=== PATIENT | male | born 1995 | race Caucasian/White ===

== ENCOUNTER 2018-04-01 08:14 | Emergency (ER) | payer MEDICAID ==
--- NOTE | 2018-04-01 08:49 | EDM.PDOC ---
ED HPI GENERAL MEDICAL PROBLEM - General Chief Complaint: Back Pain or Injury Stated Complaint: R SIDE BACK AND LEG PAIN Time Seen by Provider: 04/01/18 08:39 Source of Information: Reports: Patient History Limitations: Reports: No Limitations - History of Present Illness INITIAL COMMENTS - FREE TEXT/NARRATIVE: 22-year-old male presents to the ED with acute onset of low back pain starting yesterday and worsening overnight. Pain is now radiating down the right buttock and posterior lateral thigh to his toes. He states his toes are numb and tingly. She did work out yesterday including squats. He states it wasn't too bad while doing very squats. Did not recognize that he had injured himself. He has had mild low back pain the past and has seen a chiropractor but never to this severity. Pain is constant deep and aching and worsened by movement of the right lower extremity and weightbearing. Onset: Gradual Onset Date: 03/31/18 Duration: Hour(s):, Getting Worse Location: Reports: Back, Radiates to Quality: Reports: Ache, Burning, Throbbing Severity: Moderate (8-9 out of 10.) Improves with: Reports: Rest Worsens with: Reports: Movement (Standing and weightbearing make it worse.) Context: Reports: Other (Possibly injured by doing squats in the gym.). 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 Lower Back Pain Score (Numeric/FACES): 8 Right Leg Pain Score (Numeric/FACES): 10 - Related Data Allergies Allergy/AdvReac Type Severity Reaction Status Date / Time No Known Allergies Allergy Verified 04/01/18 08:25 Home Meds: Home Meds Diclofenac Sodium [Voltaren] 50 mg PO TID #30 tab.ec 04/01/18 [Rx] Polyethylene Glycol 3350 [MiraLAX] 17 gm PO ONETIME #14 packet 04/01/18 [Rx] oxyCODONE HCl/Acetaminophen [Percocet 10-325 mg Tablet] 1 - 2 each PO Q4H PRN # 30 tablet 04/01/18 [Rx] predniSONE [Deltasone] 20 mg PO ASDIRECTED #18 tablet 04/01/18 [Rx] Past Medical History HEENT History: Reports: Impaired Vision Other HEENT History: corretive lenses Musculoskeletal History: Reports: Back Pain, Chronic (Is rehabbing his back post football. Yesterday was his first day of lifting heavier even with a weight belt in place. Was squatting around 275 pounds.) - Past Surgical History Musculoskeletal Surgical History: Reports: Other (See Below) Other Musculoskeletal Surgeries/Procedures:: two ankle surgeries Social & Family History - Tobacco Use Smoking Status *Q: Never Smoker Second Hand Smoke Exposure: No - Caffeine Use Caffeine Use: Reports: None - Recreational Drug Use Recreational Drug Use: No - Living Situation & Occupation Living situation: Reports: Alone Occupation: Student ED ROS GENERAL - Review of Systems Review Of Systems: See Below Constitutional: Reports: No Symptoms HEENT: Reports: No Symptoms Respiratory: Reports: No Symptoms Cardiovascular: Reports: No Symptoms Endocrine: Reports: No Symptoms GI/Abdominal: Reports: No Symptoms : Reports: No Symptoms Musculoskeletal: Reports: Back Pain Skin: Reports: No Symptoms Neurological: Reports: Paresthesia (Feels paresthesias or numbness and tingling down into his right foot and toes.) Psychiatric: Reports: No Symptoms Hematologic/Lymphatic: Reports: No Symptoms Immunologic: Reports: No Symptoms ED EXAM,LOWER BACK PAIN/INJURY - Physical Exam Exam: See Below Exam Limited By: No Limitations General Appearance: Alert, WD/WN, Mild Distress Eye Exam: Bilateral Eye: Normal Inspection Throat/Mouth: Normal Inspection, Normal Lips, Normal Oropharynx Head: Atraumatic, Normocephalic Extremities: Normal Inspection, No Pedal Edema, Other (Patient is markedly tender throughout the right sacroiliac joint as well as a bit of the left sacroiliac joint. He has some pain in his anterior quadriceps and) Neurological: Alert, Normal Mood/Affect, Normal Dorsiflexion, CN II-XII Intact, Normal Reflexes, Oriented x 3, Straight Leg Raise (R) (Straight leg raise was positive at 50 on the right side.), Other (Dorsiflexion of both great toes is equal.). No: Straight Leg Raise (L) DTR - Lower Extremities: 2+: Ankle (R), Ankle (L), 3+: Knee (R), Knee (L) Psychiatric: Normal Affect, Normal Mood Skin Exam: Warm, Dry, Intact, Normal Color, No Rash Course - Vital Signs Last Recorded V/S: Last Vital Signs Temp 36.2 C 04/01/18 08:22 Pulse 51 L 04/01/18 08:22 Resp 20 04/01/18 08:22 BP 131/64 04/01/18 08:22 Pulse Ox 100 04/01/18 08:22 - Orders/Labs/Meds Meds: Medications Discontinued Medications Generic Name Dose Route Start Last Admin Trade Name Delfin PRN Reason Stop Dose Admin Hydromorphone HCl 2 mg 04/01/18 08:53 Dilaudid IVPUSH 04/01/18 08:54 ONETIME ONE Hydromorphone HCl 2 mg 04/01/18 08:55 Dilaudid IM 04/01/18 08:56 ONETIME ONE Promethazine HCl 25 mg 04/01/18 08:53 Phenergan IM 04/01/18 08:54 ONETIME ONE - Radiology Interpretation Free Text/Narrative:: 22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 He presents to the ED with acute onset of severe low back pain rating down his posterior lateral right thigh to his foot. Patient has had back pain off and on for several months. He's been nursing himself back to better health. Yesterday he was squatting in the gym heavier than what he has been in the past. He did not notice any acute pain while squatting. However after squatting he developed increased low back pain on the right side radiating down the posterior lateral aspect of his right thigh down to his right foot. He is aware of some paresthesias and numbness and tingling in his right toes. Examination shows pain to palpation in his low back from L2-L5 on the right side worse at L4-L5 facet joints. There is marked pain on palpation of both sacroiliac joints worse on the right as compared to the left. Straight leg raising is mildly positive at 50 on the right side. Cannot rule out nerve root entrapment for sure. However a lot of pain appears to be referred from the low back. Plan he will be given an injection of Dilaudid 2 mg IM here with Phenergan 25 mg. Of note his weight is 312 pounds. He'll be discharged on prednisone 20 mg with breakfast and supper for 6 days then once in the morning for another 6 days. Voltaren 50 mg 3 times daily for 10 days. Exit 10/325 mg tabs one or 2 every 4-6 hours needed for pain relief. MiraLAX powder 17 g daily to prevent constipation. He's to follow-up with his personal care physician in 7-10 days time Departure - Departure Time of Disposition: 09:00 Disposition: Home, Self-Care 01 Condition: Fair Clinical Impression: Lumbar back sprain Qualifiers: Encounter type: initial encounter Qualified Code(s): S33.5XXA - Sprain of ligaments of lumbar spine, initial encounter - Discharge Information *PRESCRIPTION DRUG MONITORING PROGRAM REVIEWED*: Not Applicable *COPY OF PRESCRIPTION DRUG MONITORING REPORT IN PATIENT CRISTINE: Not Applicable Prescriptions: Diclofenac Sodium [Voltaren] 50 mg PO TID #30 tab.ec oxyCODONE HCl/Acetaminophen [Percocet 10-325 mg Tablet] 1 - 2 each PO Q4H PRN # 30 tablet PRN Reason: low back strain Polyethylene Glycol 3350 [MiraLAX] 17 gm PO ONETIME #14 packet predniSONE [Deltasone] 20 mg PO ASDIRECTED #18 tablet Instructions: Back Exercises, Back Pain, Adult, [id number] Referrals: PCP,None [Primary Care Provider] - Forms: ED Department Discharge, ED Return to Work/School Form Additional Instructions: Evaluation the emergency room this morning in regards to acute onset of right- sided low back pain with radiation of pain down the right posterior lateral thigh and leg to your foot. Identified significant pain on palpation of the facet joints in your right lower back from lumbar to to lumbar 5. Also marked pain on palpation of the sacroiliac joints particularly on the right side. At this time most of the pain is referred down her lower extremity from the low back and SI joint. However he did have some signs and symptoms that would suggest mild disc herniation at this time. Time will tell. If the disc is herniated and touching the L5 nerve root the pain in the right lower extremity will likely increase for the next 2-3 days. Suggest off work for a minimum of 3 days and possibly longer. It is okay to seek out massage therapy and chiropractic manipulation. You're treated in the ED with an intramuscular injection to help alleviate pain right away. Treatment as an outpatient will be anti-inflammatory Voltaren 50 mg 3 times daily for the next 10 days. Deltasone which is a steroid 20 mg with breakfast and supper for 6 days then 1 tablet in the morning only for another 6 days to reduce pain and inflammation. Percocet tabs 10/325 mg one or 2 every 4-6 hours needed for pain relief. Suggest a softer or MiraLAX powder 17 g which can come in a packet form or the cookie jar. Suggest 1 scoop or 17 g daily to prevent constipation while on the stronger pain pills. Suggest follow-up with your personal care provider in 7-10 days time. If symptoms are worsening in that timeframe then imaging of your lower back may be required
[2018-04-01] MEDS ORDERED: HYDROmorphone 1 MG/ML Syringe IVPUSH ONE (08:53)
[2018-04-01] MEDS ORDERED: Promethazine 25 MG/ML SDV IM ONE (08:53)
[2018-04-01] MEDS ORDERED: HYDROmorphone 1 MG/ML Syringe IM ONE (08:55)
== END 2018-04-01 09:22 | disposition home or self-care (01) ==
LOC: JD.ED 08:14
DX: S33.5XXA Sprain of ligaments of lumbar spine, initial encounter (principal); M79.604 Pain in right leg; X58.XXXA Exposure to other specified factors, initial encounter; Z98.890 Other specified postprocedural states
CPT/HCPCS: 96372; 99283; J1170; J2550

== ENCOUNTER 2018-11-12 18:00 | Emergency (ER) | payer MEDICAID ==
--- NOTE | 2018-11-12 18:19 | EDM.PDOC ---
ED HPI GENERAL MEDICAL PROBLEM - General Chief Complaint: Back Pain or Injury Stated Complaint: [facility] Time Seen by Provider: 11/12/18 18:06 Source of Information: Reports: Patient, EMS History Limitations: Reports: No Limitations - History of Present Illness INITIAL COMMENTS - FREE TEXT/NARRATIVE: The patient presents by [facility] for low back pain. He was squating at the [employer] 350lbs. He felt something shift and had severe pain. He has no numbness or weakness. He had surgery on L4 and L5 in May at [facility]. He has been doing good since. He has no bowel or bladder problems. The pain is more on the right. 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 Lower Back Pain Score (Numeric/FACES): 5 - Related Data Allergies Allergy/AdvReac Type Severity Reaction Status Date / Time No Known Allergies Allergy Verified 11/12/18 18:03 Home Meds: Home Meds Steroid Ointment? 11/12/18 [History] Past Medical History HEENT History: Reports: Impaired Vision Other HEENT History: corretive lenses Musculoskeletal History: Reports: Back Pain, Chronic - Past Surgical History Musculoskeletal Surgical History: Reports: Other (See Below) Other Musculoskeletal Surgeries/Procedures:: two ankle surgeries Social & Family History - Tobacco Use Smoking Status *Q: Never Smoker - Caffeine Use Caffeine Use: Reports: None - Recreational Drug Use Recreational Drug Use: No - Living Situation & Occupation Living situation: Reports: Alone Occupation: Student ED ROS GENERAL - Review of Systems Review Of Systems: See Below Constitutional: Reports: No Symptoms HEENT: Reports: No Symptoms Respiratory: Reports: No Symptoms Cardiovascular: Reports: No Symptoms Endocrine: Reports: No Symptoms GI/Abdominal: Reports: No Symptoms : Reports: No Symptoms Musculoskeletal: Reports: Back Pain Skin: Reports: No Symptoms Neurological: Reports: No Symptoms ED EXAM,LOWER BACK PAIN/INJURY - Physical Exam Exam: See Below Exam Limited By: No Limitations General Appearance: Alert, No Apparent Distress Ears: Normal External Exam Nose: Normal Inspection Head: Atraumatic, Normocephalic Neck: Normal Inspection Respiratory/Chest: No Respiratory Distress, Lungs Clear, Normal Breath Sounds Cardiovascular: Regular Rate, Rhythm, No Edema, No Murmur GI/Abdominal: Soft, Non-Tender, No Organomegaly, No Mass Back Exam: Other (Pain upon palpation to the right lower back) Course - Vital Signs Last Recorded V/S: Last Vital Signs Temp 97.0 F 11/12/18 18:03 Pulse 51 L 11/12/18 18:03 Resp 16 11/12/18 18:03 BP 101/57 L 11/12/18 18:03 Pulse Ox 97 11/12/18 18:03 - Orders/Labs/Meds Meds: Medications Discontinued Medications Generic Name Dose Route Start Last Admin Trade Name Delfin PRN Reason Stop Dose Admin Cyclobenzaprine HCl 10 mg 11/12/18 19:34 11/12/18 19:50 Flexeril PO 11/12/18 19:35 10 mg ONETIME ONE Administration Hydromorphone HCl 0.5 mg 11/12/18 19:05 11/12/18 19:08 Dilaudid IVPUSH 11/12/18 19:06 0.5 mg ONETIME ONE Administration Ketorolac Tromethamine 30 mg 11/12/18 19:33 11/12/18 19:49 Toradol IVPUSH 11/12/18 19:34 30 mg ONETIME ONE Administration - Re-Assessments/Exams Free Text/Narrative Re-Assessment/Exam: 11/12/18 18:19 I ordered an IV saline lock, and CT of his lumbar spine. He got fentanyl by EMS and he is feeling better. 11/12/18 19:[address] shows disc herniation at L4-L5 causing mild central canal stenosis. This was seen on previous exam and appears fairly stable when allowing for differences caused by the different modalities. More accurate comparison could be obtained by MRI if clinically needed. Other slight degenerative change is noted above. Nothing acute is seen from prior MRI lumbar spine study. I sat him up and he had more pain so I ordered toradol 30mg IV and flexeril 10mg PO. 11/12/18 20:28 He is up now. I have ordered an MRI of his back. I will get him a muscle relaxer and something more for pain. Departure - Departure Time of Disposition: 20:30 Disposition: Home, Self-Care 01 Condition: Good Clinical Impression: Bulging lumbar disc Lumbar back sprain Qualifiers: Encounter type: initial encounter Qualified Code(s): S33.5XXA - Sprain of ligaments of lumbar spine, initial encounter - Discharge Information *PRESCRIPTION DRUG MONITORING PROGRAM REVIEWED*: No *COPY OF PRESCRIPTION DRUG MONITORING REPORT IN PATIENT CRISTINE: No Referrals: PCP,Not In Area [Primary Care Provider] - Anson Garrido Jr, MD [Ordering Only Provider] - 1 Week Forms: ED Department Discharge Additional Instructions: Take motrin or aleve for pain. You may also take the flexeril for pain. If that is not helping try the hydrocodone. I have ordered an MRI of your lumbar spine. Our radiology department will call you with a time. Please return if you are worse.
[2018-11-12] MEDS ORDERED: HYDROmorphone 0.5 MG/0.5 ML Syringe IVPUSH ONE (19:05)
--- NOTE | 2018-11-12 19:23 | CT ---
CT lumbar spine Technique: Multiple axial sections were obtained from the top of T12 inferiorly through the mid S5 segment. Comparison: Prior MRI lumbar spine study of 04/06/18. Findings: T12-L1: Posterior disc is preserved. No central canal stenosis or neural foraminal stenosis is seen. L1-L2: Posterior disc is concave margin. No central canal stenosis or neural foraminal stenosis is seen. L2-3: Very minimal circumferential disc bulge is seen. Posterior disc maintains a concave margin. No central canal stenosis or neural foraminal stenosis is seen. L3-L4: Mild circumferential disc bulge is seen. Posterior disc has a planar margin. Disc bulge slightly effaces the anterior thecal sac but no central canal stenosis is seen. Neural foramina are patent where the nerve roots exit. L4-L5: Mild disc space narrowing is seen. Fairly large disc herniation is seen posteriorly to the midline and to the right of midline. Disc herniation is fairly stable from prior exam and causes central canal stenosis. Neural foramina are patent where the nerve roots exit. L5-S1: Slight diffuse posterior disc bulge is seen. No central canal stenosis is seen. Neural foramina are patent where the nerve roots exit. No acute bony abnormality is seen. Impression: 1. Disc herniation at L4-L5 causing mild central canal stenosis. This was seen on previous exam and appears fairly stable when allowing for differences cause by the different modalities. More accurate comparison could be obtained by MRI if clinically needed. 2. Other slight degenerative change as noted above. Nothing acute is seen from prior MRI lumbar spine study. Diagnostic code #3
[2018-11-12] MEDS ORDERED: Ketorolac 30 MG/ML SDV IVPUSH ONE (19:33)
[2018-11-12] MEDS ORDERED: Cyclobenzaprine 10 MG Tab PO ONE (19:34)
== END 2018-11-12 20:38 | disposition home or self-care (01) ==
LOC: JD.ED 18:00
DX: S33.5XXA Sprain of ligaments of lumbar spine, initial encounter (principal); M51.86 Other intervertebral disc disorders, lumbar region
CPT/HCPCS: 72131; 96374; 96375; 99284; A9270; J1170; J1885

== ENCOUNTER 2020-05-26 10:23 | Emergency (ER) | payer MEDICAID ==
--- NOTE | 2020-05-26 11:05 | EDM.PDOC ---
ED HPI GENERAL MEDICAL PROBLEM - General Chief Complaint: Back Pain or Injury Stated Complaint: BACK PAIN Time Seen by Provider: 05/26/20 10:55 - History of Present Illness INITIAL COMMENTS - FREE TEXT/NARRATIVE: 24-year-old male presents the emergency room with back pain. Patient has a history of having a total discectomy at L4-5. And every once in a while he gets spasms on his right side. This is making it hard for him to use his right leg but his right leg does work the way it supposed to. Patient does not have any numbness or tingling going down his leg he has no loss of bowel or bladder control. Patient denies any recent trauma or falls. Patient has not had any abdominal pain no nausea vomiting constipation or diarrhea. He has attempted ibuprofen but this has not alleviated the discomfort. This is been getting worse over the last several days. Lower Back Pain Score (Numeric/FACES): 7 - Related Data Allergies Allergy/AdvReac Type Severity Reaction Status Date / Time No Known Allergies Allergy Verified 05/26/20 10:33 Home Meds: Home Meds Steroid Ointment? 11/12/18 [History] Orphenadrine [Norflex] 100 mg PO BID #14 tab 05/26/20 [Rx] Past Medical History HEENT History: Reports: Impaired Vision Other HEENT History: corretive lenses Musculoskeletal History: Reports: Back Pain, Chronic - Past Surgical History Musculoskeletal Surgical History: Reports: Other (See Below) Other Musculoskeletal Surgeries/Procedures:: two ankle surgeries, hyperdiscectomy Social & Family History - Tobacco Use Tobacco Use Status *Q: Never Tobacco User Second Hand Smoke Exposure: No - Caffeine Use Caffeine Use: Reports: Coffee - Recreational Drug Use Recreational Drug Use: No - Living Situation & Occupation Living situation: Reports: Alone Occupation: Student ED ROS GENERAL - Review of Systems Review Of Systems: See Below Constitutional: Reports: No Symptoms Respiratory: Reports: No Symptoms Cardiovascular: Reports: No Symptoms GI/Abdominal: Reports: No Symptoms : Reports: No Symptoms ED EXAM, GENERAL - Physical Exam Exam: See Below Exam Limited By: No Limitations General Appearance: Alert, No Apparent Distress Respiratory/Chest: No Respiratory Distress, Lungs Clear, Normal Breath Sounds Cardiovascular: Regular Rate, Rhythm, No Edema, No Murmur GI/Abdominal: Normal Bowel Sounds, Soft, Non-Tender Back Exam: Paraspinal Tenderness (He has some spasm noted in the right lower lumbar region and this seems to elicit the pain that brought him in when palpated.). No: Vertebral Tenderness Extremities: Normal Inspection, No Pedal Edema Neurological: Alert, Oriented, Normal Cognition Course - Vital Signs Last Recorded V/S: Last Vital Signs Temp 36.1 C 05/26/20 10:31 Pulse 60 05/26/20 10:31 Resp 16 05/26/20 10:31 BP 133/61 05/26/20 10:31 Pulse Ox 97 05/26/20 10:31 - Re-Assessments/Exams Free Text/Narrative Re-Assessment/Exam: 05/26/20 11:12 Patient will be placed on Norflex and will continue his ibuprofen. Departure - Departure Time of Disposition: 11:14 Disposition: Home, Self-Care 01 Clinical Impression: Spasm of muscle of lower back - Discharge Information Prescriptions: Orphenadrine [Norflex] 100 mg PO BID #14 tab Referrals: PCP,None [Primary Care Provider] - Forms: ED Department Discharge Additional Instructions: Return to the emergency room with any questions problems or worsening symptoms. You need to establish with a local healthcare provider. The phone number to the hospital clinic is [phone]. You have been started on Norflex, or orphenadrine. This is a muscle relaxant take 1 twice daily to help alleviate the spasm. You should also continue your ibuprofen. Be sure and take the ibuprofen with food. The muscle relaxant can cause sedation so use caution with this. Sepsis Event Note (ED) - Evaluation Sepsis Screening Result: No Definite Risk - Focused Exam Vital Signs: Vital Signs Temp Pulse Resp BP Pulse Ox 05/26/20 10:31 36.1 C 60 16 133/61 97
== END 2020-05-26 11:26 | disposition home or self-care (01) ==
LOC: JD.ED 10:23
DX: M62.830 Muscle spasm of back (principal)
CPT/HCPCS: 99283

== ENCOUNTER 2021-01-21 08:22 | Emergency (ER) | payer MEDICAID ==
[2021-01-21] MEDS ORDERED: Cyclobenzaprine 10 MG Tab PO ONE (09:38)
[2021-01-21] MEDS ORDERED: Ketorolac 30 MG/ML SDV IM ONE (09:38)
--- NOTE | 2021-01-21 10:07 | EDM.PDOC ---
ED [facility] GENERAL MEDICAL PROBLEM - General Chief Complaint: Back Pain or Injury Stated Complaint: BACK PAIN Time Seen by Provider: 01/21/21 09:50 Source of Information: Reports: Patient - History of Present Illness INITIAL COMMENTS - FREE TEXT/NARRATIVE: Patient is a 25-year-old male with a past medical history of obesity presenting with a chief complaint of low back pain. Patient reports having chronic history of low back pain for several years. Patient reports having previous surgery several years ago but this did not seem to alleviate his symptoms. Patient reports pain is on the right side and radiates down the back of the right leg. Patient reports aggravating over the past few days. Patient has been using [id number] medication with little relief. Patient reports prior exacerbations have been alleviated by Flexeril and pain medication. Otherwise, patient denies any fevers, chills, bowel bladder incontinence, saddle paresthesias. Lower Back Pain Score (Numeric/FACES): 10 - Related Data Allergies Allergy/AdvReac Type Severity Reaction Status Date / Time No Known Allergies Allergy Verified 01/21/21 09:20 Home Meds: Home Meds Cyclobenzaprine [Flexeril] 10 mg PO TID #21 tab 01/21/21 [Rx] Past Medical History HEENT History: Reports: Impaired Vision Other HEENT History: corretive lenses Musculoskeletal History: Reports: Back Pain, Chronic - Past Surgical History Neurological Surgical History: Reports: Discectomy Musculoskeletal Surgical History: Reports: ORIF Social & Family History - Tobacco Use Tobacco Use Status *Q: Never Tobacco User - Caffeine Use Caffeine Use: Reports: Coffee - Recreational Drug Use Recreational Drug Use: No - Living Situation & Occupation Living situation: Reports: Alone Occupation: Student ED ROS GENERAL - Review of Systems Review Of Systems: See Below Free Text/Narrative/Comment: In addition to that documented in the HPI above, the additional ROS was obtained: Constitutional: Denies fevers or chills Eyes: Denies vision changes ENMT: Denies sore throat CV: Denies chest pain Resp: Denies SOB GI: Denies vomiting or diarrhea : Denies painful urination MSK: Denies recent trauma Skin: Denies new rashes Neuro: Denies new numbness or tingling or weakness Endocrine: Denies unexpected weight loss Heme: Denies bleeding disorders ED EXAM,LOWER BACK PAIN/INJURY - Physical Exam Exam: See Below Text/Narrative:: I have reviewed the triage vital signs Const: Well nourished, well developed, appears stated age Eyes: Extraocular movements intact, no conjunctival injection HENT: No signs of trauma or swelling, Neck supple without meningismus CV: Regular Rate Rhythm, Warm, well-perfused extremities RESP: Unlabored respiratory effort MSK: No gross deformities appreciated. Midline lumbar scar noted. No midline lumbar or thoracic spinal tenderness. Skin: Warm, dry. No rashes Neuro: Alert, [employer] compliance internship II-XII grossly intact. Sensation and motor function of lower extremities is intact. Psych: Appropriate mood and affect. Course - Vital Signs Last Recorded V/S: Last Vital Signs Temp 36.1 C 01/21/21 09:17 Pulse 58 L 01/21/21 09:17 Resp 18 01/21/21 09:17 BP 149/84 H 01/21/21 09:17 Pulse Ox 99 01/21/21 09:17 - Orders/Labs/Meds Meds: Medications Discontinued Medications Generic Name Dose Route Start Last Admin Trade Name Delfin PRN Reason Stop Dose Admin Cyclobenzaprine HCl 10 mg 01/21/21 09:38 01/21/21 10:09 Cyclobenzaprine 10 Mg Tab PO 01/21/21 09:39 10 mg ONETIME ONE Administration Ketorolac Tromethamine 30 mg 01/21/21 09:38 01/21/21 10:09 Ketorolac 30 Mg/Ml Sdv IM 01/21/21 09:39 30 mg ONETIME ONE Administration Departure - Departure Time of Disposition: 10:06 Disposition: Home, Self-Care 01 Clinical Impression: Lumbar back sprain Qualifiers: Encounter type: initial encounter Qualified Code(s): S33.5XXA - Sprain of ligaments of lumbar spine, initial encounter - Discharge Information Prescriptions: Cyclobenzaprine [Flexeril] 10 mg PO TID #21 tab Instructions: Chronic Back Pain Referrals: PCP,None [Primary Care Provider] - Forms: ED Department Discharge Additional Instructions: Avoid heavy lifting or strenuous activity. Use Flexeril as instructed. Continue to use Tylenol and ibuprofen every 6-8 hours to help with pain. Turn to the emergency room should you develop numbness or tingling in your groin, difficulty using the bathroom or have any other emergent concerns. Sepsis Event Note (ED) - Evaluation Sepsis Screening Result: No Definite Risk - Focused Exam Vital Signs: Vital Signs Temp Pulse Resp BP Pulse Ox 01/21/21 09:17 36.1 C 58 L 18 149/84 H 99 - Assessment/Plan Assessment:: Patient is 25 year-old presenting with low back pain. Differential diagnosis considered for this patient include cauda equina syndrome, spinal epidural abscess, abdominal aneurysm, kidney stone. Likely diagnosis for this patient is musculoskeletal strain. No further work-up indicated at this time. Patient given pain medication in the emergency room with improvement of symptoms. Return precautions discussed as usual. Patient agrees with plan of care.
== END 2021-01-21 10:35 | disposition home or self-care (01) ==
LOC: JD.ED 08:22
DX: S33.5XXA Sprain of ligaments of lumbar spine, initial encounter (principal); X58.XXXA Exposure to other specified factors, initial encounter
CPT/HCPCS: 96372; 99283; A9270; J1885; 99284